=== PATIENT | male | born 1960 | race Two or more races ===

== ENCOUNTER 2019-09-29 22:37 | Emergency (ER) | payer MEDICAID, OTHER ==
[~2019-09-29] VITALS: Ht 185.4 cm; Wt 143.0 kg
[2019-09-30 00:27] LABS: BASOPHILS % 0.6 % (0.0-2.0); CHLORIDE 103 mEq/L (98-107); EOSINOPHILS % 1.1 % (0.0-5.0); HEMATOCRIT. 35.1 % (42.0-52.0); HEMOGLOBIN. 11.5 g/dL (14.0-18.0); LYMPHOCYTES % 11.4 % (20.0-50.0); MEAN CORPUSCULAR HEMOGLOBIN 26.5 pg (28.0-32.0); MEAN CORPUSCULAR VOLUME 80.9 fL (80.0-94.0); MEAN PLATELET VOLUME 7.2 fl (7.4-10.4); MONOCYTES % 5.8 % (2.0-8.0); NEUTROPHILS % 81.1 % (40.0-76.0); PLATELET 253 x1000/uL (130-400); RED BLOOD CELL COUNT 4.34 mill/uL (4.7-6.1); RED CELL DISTRIBUTION WIDTH 15.7 % (11.6-14.6)
[2019-09-30] MEDS ORDERED: HYDROCODONE/ACETAMINOPHEN 5/325MG TABLET PO ONE (00:30)
[2019-09-30] MEDS ORDERED: KETOROLAC 60MG/2ML VIAL IM ONE (00:30)
[2019-09-30] MEDS ORDERED: CLINDAMYCIN HCL 150MG CAPSULE PO ONE (00:30)
[2019-09-30 02:03] VITALS: BP 148/64
[2019-10-04] MEDS ORDERED: ALPR0.5T MT (08:43)
[2019-10-04] MEDS ORDERED: LOSA50TA3 MT (08:43)
[2019-10-04] MEDS ORDERED: ASPI-1393 MT (08:43)
[2019-10-04] MEDS ORDERED: ATOR40TA70 MT (08:43)
== END 2019-09-30 02:05 | disposition home or self-care (01) ==
LOC: ER 22:37
DX: L03.115 Cellulitis of right lower limb (principal); J44.9 Chronic obstructive pulmonary disease, unspecified; I51.9 Heart disease, unspecified; M86.9 Osteomyelitis, unspecified; Z88.8 Allergy status to other drugs, medicaments and biological substances; Z94.5 Skin transplant status
CPT/HCPCS: 36415; 80053; 83880; 84484; 85025; 96372; 99283; J1885

== ENCOUNTER 2019-11-20 18:28 | Emergency (ER) | payer MEDICAID ==
[~2019-11-20] VITALS: Ht 177.8 cm; Wt 130.0 kg
[~2019-11-20 18:28] MED LIST: ALPR0.5T MT; ASPI-1497 MT; ATOR40TA70 MT; CIPR-263 MT; FURO-151 MT; LOSA50TA3 MT; SULF1TAB48 MT
[2019-11-20 18:29] VITALS: BP 162/74
== END 2019-11-20 19:42 | disposition left against medical advice (07) ==
LOC: ER 18:28
DX: Z53.21 Procedure and treatment not carried out due to patient leaving prior to being seen by health care provider (principal); I11.9 Hypertensive heart disease without heart failure; J44.9 Chronic obstructive pulmonary disease, unspecified